=== PATIENT | female | born 1985 | race Asian ===

== ENCOUNTER 2018-06-29 18:49 | Emergency (ER) | payer BC ==
[~2018-06-29] VITALS: Ht 162.6 cm; Wt 79.4 kg
[2018-06-29 19:39] VITALS: BP 112/79; TEMP 98
== END 2018-06-29 19:51 | disposition home or self-care (01) ==
LOC: ED 18:49
DX: N76.0 Acute vaginitis (principal); M54.5 Low back pain; R10.30 Lower abdominal pain, unspecified; Z33.1 Pregnant state, incidental; Z3A.01 Less than 8 weeks gestation of pregnancy
CPT/HCPCS: 81000; 99282